=== PATIENT | female | born 1960 | race Caucasian/White ===

== ENCOUNTER 2024-08-10 08:17 | Emergency (ER) | payer OTHER ==
[2024-08-10 08:59] LABS: #Basophils 0.06 10x3/uL (0.0-0.2); %Basophils 0.6 % (0.0-1.0); %Lymphocytes 23.8 % (21.0-51.0); %Monocytes 6.8 % (0.0-10.0); %Neutrophils 66.3 % (42.0-75.0); Hematocrit 39.5 % (36.0-47.0); Hemoglobin 13.2 g/dL (12.0-16.0); Mean Corpuscular HGB CONC 33.4 g/dL (32.0-36.0); Mean Corpuscular Hemoglobin 29.1 pg (27.0-31.0); Mean Corpuscular Volume 87.2 fL (78.0-98.0); Mean Platelet Volume 10.3 fL (7.4-10.4); Platelet Count 202 10x3/uL (130-400); RBC Distribution Width 14.3 % (11.5-14.5); Red Blood Cell (RBC) Count 4.53 mill/uL (4.20-5.40)
[2024-08-10] MEDS ORDERED: Aspirin Chewable 81 MG TAB ONE (09:24)
[2024-08-10 09:29] LABS: Troponin I 0.011 ng/mL (< 0.028)
[2024-08-10 09:55] LABS: Albumin 3.7 g/dL (3.4-4.8); Calcium 9.4 mg/dL (7.8-10.44); Chloride 100 mmol/L (98-107); Potassium 4.2 mmol/L (3.5-5.1); Sodium 140 mmol/L (136-145)
[2024-08-10 09:56] LABS: Globulin 4.2 g/dL (2.4-3.5); Glucose 258 mg/dL (80-115); Protein, Total 7.9 g/dL (5.8-8.1)
[2024-08-10 09:57] LABS: Anion Gap 20 mmol/L (10-20); Carbon Dioxide 24 mmol/L (23-31)
[2024-08-10 09:59] LABS: Alkaline Phosphatase 142 U/L (40-110); Bilirubin, Total 0.5 mg/dL (0.2-1.2)
[2024-08-10 10:00] LABS: BUN (Urea Nitrogen) 26 mg/dL (9.8-20.1); Calc. Creatinine Clearance 0 mL/min (70-130); Estimated GFR 33
[2024-08-10 10:02] LABS: ALT (SGPT) 16 U/L (8-55); AST (SGOT) 15 U/L (5-34)
== END 2024-08-10 10:42 | disposition home or self-care (01) ==
LOC: ERS 08:17
DX: R55 Syncope and collapse (principal); R07.89 Other chest pain; I10 Essential (primary) hypertension; E11.9 Type 2 diabetes mellitus without complications
CPT/HCPCS: 71045; 80053; 83880; 84484; 85025; 93005

== ENCOUNTER 2025-07-11 20:00 | Inpatient (IN) | payer BC ==
[2025-07-11 22:21] LABS: #Basophils 0.06 10x3/uL (0.0-0.2); #Eosinophils 0.07 10x3/uL (0.0-0.7); #Monocytes 0.63 10x3/uL (0.11-0.59); #Neutrophils 5.14 10x3/uL (1.40-6.50); %Basophils 0.8 % (0.0-1.0); %Eosinophils 1.0 % (0.0-10.0); %Lymphocytes 16.0 % (21.0-51.0); %Monocytes 8.9 % (0.0-10.0); %Neutrophils 72.9 % (42.0-75.0); Hematocrit 32.1 % (36.0-47.0); Hemoglobin 9.4 g/dL (12.0-16.0); Mean Corpuscular Hemoglobin 22.2 pg (27.0-31.0); Mean Corpuscular Volume 75.7 fL (78.0-98.0); Platelet Count 229 10x3/uL (130-400); Red Blood Cell (RBC) Count 4.24 mill/uL (4.20-5.40); White Blood Cell (WBC) Count 7.06 10x3/uL (4.8-10.8)
[2025-07-11 22:46] LABS: ALT (SGPT) 9 U/L (Less than 34); AST (SGOT) 16 U/L (11-34); Albumin 3.1 g/dL (3.1-4.5); Alkaline Phosphatase 119 U/L (40-110); Anion Gap 16 mmol/L (10-20); BUN (Urea Nitrogen) 17 mg/dL (9.8-20.1); Bilirubin, Total 1.0 mg/dL (0.3-1.2); Calc. Creatinine Clearance 0 mL/min (70-130); Calcium 9.2 mg/dL (7.8-10.44); Carbon Dioxide 23 mmol/L (23-31); Chloride 100 mmol/L (98-107); Globulin 3.8 g/dL (2.4-3.5); Glucose 173 mg/dL (80-115); Potassium 3.9 mmol/L (3.5-5.1); Sodium 135 mmol/L (136-145)
[2025-07-11] MEDS ORDERED: Cefepime 2 GM VIAL ONE (23:28)
[2025-07-12] MEDS ORDERED: Vancomycin 1 GM/200 ML (PREMIX FOIL) BAG ONE (00:19)
[2025-07-12] MEDS ORDERED: Glucagon 1 MG/ML KIT IM PRN (02:54)
[2025-07-12] MEDS ORDERED: Dextrose 50% Abboject 50 ML SYRINGE SLOW IVP PRN (02:54)
[2025-07-12] MEDS ORDERED: HYDROcodone/Acetaminophen 7.5/325 mg Tablet PO PRN (04:32)
[2025-07-12 04:55] LABS: Anion Gap 19 mmol/L (10-20); BUN (Urea Nitrogen) 16 mg/dL (9.8-20.1); Calc. Creatinine Clearance 86 mL/min (70-130); Calcium 9.1 mg/dL (7.8-10.44); Carbon Dioxide 21 mmol/L (23-31); Chloride 99 mmol/L (98-107); Glucose 146 mg/dL (80-115); Potassium 3.6 mmol/L (3.5-5.1); Sodium 135 mmol/L (136-145)
[2025-07-12 05:44] LABS: #Basophils 0.08 10x3/uL (0.0-0.2); #Eosinophils 0.13 10x3/uL (0.0-0.7); #Monocytes 0.73 10x3/uL (0.11-0.59); #Neutrophils 4.89 10x3/uL (1.40-6.50); %Basophils 1.1 % (0.0-1.0); %Eosinophils 1.7 % (0.0-10.0); %Lymphocytes 21.3 % (21.0-51.0); %Monocytes 9.8 % (0.0-10.0); %Neutrophils 65.7 % (42.0-75.0); Hematocrit 32.0 % (36.0-47.0); Hemoglobin 9.1 g/dL (12.0-16.0); Mean Corpuscular Hemoglobin 22.0 pg (27.0-31.0); Mean Corpuscular Volume 77.3 fL (78.0-98.0); Platelet Count 226 10x3/uL (130-400); Red Blood Cell (RBC) Count 4.14 mill/uL (4.20-5.40); White Blood Cell (WBC) Count 7.45 10x3/uL (4.8-10.8)
[2025-07-12 06:36] LABS: Anisocytosis SLIGHT = 6-15 cells HPF (0-5); Macrocytosis SLIGHT = 6-15 cells HPF (0-5); Platelet Adequacy Comment Platelets Normal; Polychromasia SLIGHT = 2-3 cells HPF (0-2); Smudge Cells 7.8 %
[2025-07-12] MEDS: cefTRIAXone\\ROCEPHIN 1 GM in Sodium Chloride 0.9% 100 ML IVPB SCH (08:43)
[2025-07-12] MEDS: Carvedilol 6.25 MG TAB PO SCH (08:43)
[2025-07-12] MEDS: Furosemide 40 MG TAB PO SCH (08:44)
[2025-07-12] MEDS: Pantoprazole 40 MG DR.TAB PO SCH (08:44)
[2025-07-12] MEDS: Cyanocobalamin (Vitamin B-12) 1,000 MCG TAB PO SCH (08:45)
[2025-07-12] MEDS: Apixaban 5 MG TAB PO SCH (08:46)
[2025-07-12] MEDS: Insulin Glargine 30 UNITS/0.3 ML VIAL SC SCH ×2 (08:47→20:28)
[2025-07-12] MEDS: Lisinopril 5 MG TAB PO SCH (08:56)
[2025-07-12] MEDS ORDERED: Apixaban 5 MG TAB PO SCH (09:00)
[2025-07-12] MEDS: Vancomycin 1.5 GM / NS 500ML VIAL-2-BAG IVPB SCH (11:44)
[2025-07-12] MEDS ORDERED: Vancomycin HCl 750 MG in Sodium Chloride 0.9% 250 ML 250 ML IVPB SCH (12:00)
[2025-07-12 15:15] VITALS: BMI 37.8
[2025-07-12] MEDS: HYDROcodone/Acetaminophen 10/325 mg Tablet PO PRN (20:26)
[2025-07-13 05:32] LABS: #Basophils 0.06 10x3/uL (0.0-0.2); #Eosinophils 0.18 10x3/uL (0.0-0.7); #Monocytes 0.65 10x3/uL (0.11-0.59); #Neutrophils 3.74 10x3/uL (1.40-6.50); %Basophils 1.1 % (0.0-1.0); %Eosinophils 3.2 % (0.0-10.0); %Lymphocytes 16.4 % (21.0-51.0); %Monocytes 11.7 % (0.0-10.0); %Neutrophils 67.2 % (42.0-75.0); Hematocrit 29.0 % (36.0-47.0); Hemoglobin 8.5 g/dL (12.0-16.0); Mean Corpuscular Hemoglobin 22.5 pg (27.0-31.0); Mean Corpuscular Volume 76.9 fL (78.0-98.0); Platelet Count 202 10x3/uL (130-400); Red Blood Cell (RBC) Count 3.77 mill/uL (4.20-5.40); White Blood Cell (WBC) Count 5.56 10x3/uL (4.8-10.8)
[2025-07-13 06:33] LABS: Anion Gap 20 mmol/L (10-20); BUN (Urea Nitrogen) 14 mg/dL (9.8-20.1); Calc. Creatinine Clearance 83 mL/min (70-130); Calcium 8.2 mg/dL (7.8-10.44); Carbon Dioxide 23 mmol/L (23-31); Chloride 99 mmol/L (98-107); Glucose 166 mg/dL (80-115); Potassium 3.6 mmol/L (3.5-5.1); Sodium 138 mmol/L (136-145)
[2025-07-13 08:23] LABS: Vancomycin, Random 17.5 ug/mL (See Comment)
[2025-07-13] MEDS: Vancomycin 1.25 GM / NS 250 ML VIAL-2-BAG IVPB SCH (09:06)
[2025-07-13] MEDS: diphenhydrAMINE 25 MG CAP PO PRN (15:56)
[2025-07-14] MEDS ORDERED: Vancomycin 1 GM in Premix 1 BAG IVPB SCH (09:00)
[2025-07-14 10:39] LABS: #Basophils 0.04 10x3/uL (0.0-0.2); #Eosinophils 0.04 10x3/uL (0.0-0.7); #Monocytes 0.16 10x3/uL (0.11-0.59); #Neutrophils 5.45 10x3/uL (1.40-6.50); %Basophils 0.6 % (0.0-1.0); %Eosinophils 0.6 % (0.0-10.0); %Lymphocytes 9.2 % (21.0-51.0); %Monocytes 2.5 % (0.0-10.0); %Neutrophils 86.5 % (42.0-75.0); Hematocrit 31.0 % (36.0-47.0); Hemoglobin 9.2 g/dL (12.0-16.0); Mean Corpuscular Hemoglobin 22.8 pg (27.0-31.0); Mean Corpuscular Volume 76.7 fL (78.0-98.0); Platelet Count 247 10x3/uL (130-400); Red Blood Cell (RBC) Count 4.04 mill/uL (4.20-5.40); White Blood Cell (WBC) Count 6.31 10x3/uL (4.8-10.8)
[2025-07-14 10:54] LABS: Anion Gap 14 mmol/L (10-20); BUN (Urea Nitrogen) 13 mg/dL (9.8-20.1); Calc. Creatinine Clearance 88 mL/min (70-130); Calcium 9.0 mg/dL (7.8-10.44); Carbon Dioxide 24 mmol/L (23-31); Chloride 101 mmol/L (98-107); Glucose 211 mg/dL (80-115); Potassium 3.7 mmol/L (3.5-5.1); Sodium 135 mmol/L (136-145)
[2025-07-14] MEDS: Ondansetron PF 4 MG/2 ML Vial IVP PRN (14:02)
[2025-07-14] MEDS: Acetaminophen 325 MG TAB PO PRN (17:46)
[2025-07-15 09:26] LABS: Hematocrit 31.0 % (36.0-47.0); Hemoglobin 8.9 g/dL (12.0-16.0); Platelet Count 265 10x3/uL (130-400)
[2025-07-15] MEDS: Heparin 10,000 UNITS/ 10 ML VIAL SLOW IVP SCH (09:40)
[2025-07-15] MEDS: Nitroglycerin 2% Ointment 1 INCH/1 GM Packet ONE (11:05)
[2025-07-15] MEDS ORDERED: Iopamidol 370 76% 100 ML VIAL ONE (13:32)
[2025-07-15] MEDS: Nitroglycerin 2% Ointment 1 INCH/1 GM Packet TOP SCH (13:36)
[2025-07-15 20:15] VITALS: BP 111/77; TEMP 98
== END 2025-07-15 20:25 | disposition short-term general hospital (02) | DRG 300 ==
LOC: ERS 20:00 → MSONC 07-12 02:37 → OBSVTOIN 07-13 09:22 → 2NO 07-15 13:57
PROVIDERS: ADMIT Internal Medicine; ATTEND Internal Medicine
DX: I82.411 Acute embolism and thrombosis of right femoral vein (principal); I13.0 Hypertensive heart and chronic kidney disease with heart failure and stage 1 through stage 4 chronic kidney disease, or unspecified chronic kidney disease; L03.115 Cellulitis of right lower limb; I50.42 Chronic combined systolic (congestive) and diastolic (congestive) heart failure; N18.4 Chronic kidney disease, stage 4 (severe); I73.9 Peripheral vascular disease, unspecified; I25.10 Atherosclerotic heart disease of native coronary artery without angina pectoris; I35.0 Nonrheumatic aortic (valve) stenosis; M81.0 Age-related osteoporosis without current pathological fracture; F41.1 Generalized anxiety disorder; F43.10 Post-traumatic stress disorder, unspecified; E78.5 Hyperlipidemia, unspecified; E11.22 Type 2 diabetes mellitus with diabetic chronic kidney disease; G47.33 Obstructive sleep apnea (adult) (pediatric); Z79.899 Other long term (current) drug therapy; Z95.5 Presence of coronary angioplasty implant and graft; Z95.0 Presence of cardiac pacemaker; Z98.890 Other specified postprocedural states; Z82.49 Family history of ischemic heart disease and other diseases of the circulatory system; Z87.891 Personal history of nicotine dependence; Z88.0 Allergy status to penicillin; Z91.041 Radiographic dye allergy status; I25.2 Old myocardial infarction; Z79.4 Long term (current) use of insulin
CPT/HCPCS: 36415; 36416; 75635; 80048; 80053; 80202; 83605; 84484; 85014; 85018; 85025; 85049; 85730; 86141; 87040; 87081; 93005; 93010; 93926; 96365; 96366; 96367; 96375; 96376; 97139; G0378; J0692; J0696; J1644; J1815; J2270; J2405; J2919; J3372; J3373; J7030; J7050

== ENCOUNTER 2025-07-31 21:56 | Emergency (ER) | payer BC ==
[~2025-07-31 21:56] MED LIST: Iopamidol 370 76% 100 ML VIAL ONE
[2025-07-31 23:14] LABS: #Basophils 0.07 10x3/uL (0.0-0.2); #Eosinophils 0.15 10x3/uL (0.0-0.7); #Monocytes 0.45 10x3/uL (0.11-0.59); #Neutrophils 4.02 10x3/uL (1.40-6.50); %Basophils 1.2 % (0.0-1.0); %Eosinophils 2.6 % (0.0-10.0); %Lymphocytes 18.2 % (21.0-51.0); %Monocytes 7.8 % (0.0-10.0); %Neutrophils 69.9 % (42.0-75.0); Hematocrit 27.6 % (36.0-47.0); Hemoglobin 8.0 g/dL (12.0-16.0); Mean Corpuscular Hemoglobin 22.7 pg (27.0-31.0); Mean Corpuscular Volume 78.2 fL (78.0-98.0); Platelet Count 177 10x3/uL (130-400); Red Blood Cell (RBC) Count 3.53 mill/uL (4.20-5.40); White Blood Cell (WBC) Count 5.76 10x3/uL (4.8-10.8)
[2025-07-31 23:30] LABS: ALT (SGPT) Less than 7 U/L (Less than 34); AST (SGOT) 17 U/L (11-34); Albumin 2.9 g/dL (3.1-4.5); Alkaline Phosphatase 124 U/L (40-110); Anion Gap 17 mmol/L (10-20); BUN (Urea Nitrogen) 16 mg/dL (9.8-20.1); Bilirubin, Total 0.7 mg/dL (0.3-1.2); Calc. Creatinine Clearance 0 mL/min (70-130); Calcium 9.2 mg/dL (7.8-10.44); Carbon Dioxide 30 mmol/L (23-31); Chloride 100 mmol/L (98-107); Globulin 3.3 g/dL (2.4-3.5); Glucose 199 mg/dL (80-115); Potassium 4.3 mmol/L (3.5-5.1); Sodium 143 mmol/L (136-145)
[2025-07-31 23:33] LABS: INR-International Normal Ratio 1.2; PTT 31.8 sec (22.9-36.1); Prothrombin Time 15.2 sec (12.0-14.7)
[2025-07-31] MEDS ORDERED: Famotidine/PF 20 mg/2ml Vial ONE (23:45)
[2025-07-31] MEDS ORDERED: diphenhydrAMINE 50 MG/ML VIAL ONE (23:45)
[2025-08-01] MEDS ORDERED: Vancomycin (BATCH) 2.5 GM in Premix 1 BAG IVPB SCH (01:00)
[2025-08-01] MEDS ORDERED: Cefepime 2 GM VIAL ONE (01:17)
== END 2025-08-01 08:58 | disposition short-term general hospital (02) ==
LOC: ERS 21:56
DX: T81.49XA Infection following a procedure, other surgical site, initial encounter (principal); E11.9 Type 2 diabetes mellitus without complications; I11.0 Hypertensive heart disease with heart failure; I50.9 Heart failure, unspecified; I25.2 Old myocardial infarction; Z79.01 Long term (current) use of anticoagulants
CPT/HCPCS: 71045; 75635; 80053; 83605; 83880; 84484; 85025; 85610; 85730; 86141; 87040; 93005; 96365; 96366; 96375; 96376; J0692; J1200; J2270; J2919; J3010; J3373

== ENCOUNTER 2025-09-29 09:45 | Day surgery (SDC) | payer BC ==
[2025-09-29] MEDS ORDERED: Ondansetron PF 4 MG/2 ML Vial ONE (10:20)
[2025-09-29] MEDS ORDERED: fentaNYL PF 100 MCG/2 ML SYRINGE ONE ×4 (10:20→12:28)
[2025-09-29] MEDS ORDERED: Lidocaine 1% PF 5 ML VIAL ONE (10:20)
[2025-09-29] MEDS ORDERED: PHENYLEPHRINE-NS 100 MCG/ML 10 ML SYRINGE ONE (10:20)
[2025-09-29] MEDS ORDERED: Rocuronium Bromide 10 MG/ML (10ML VIAL) ONE (10:20)
[2025-09-29] MEDS ORDERED: Lidocaine 2% 6 ML (Jelly) SYR ONE (10:24)
[2025-09-29] MEDS ORDERED: Etomidate 40 MG (20 mL) VIAL ONE (10:39)
[2025-09-29] MEDS ORDERED: Glycopyrrolate 0.2 MG/ML 5 ML SYRINGE ONE (11:05)
[2025-09-29] MEDS ORDERED: Ketamine In 0.9 % NaCl 50 MG/5 ML SYRINGE ONE (11:05)
[2025-09-29] MEDS ORDERED: Albuterol HFA (OR) 200 PUFF INH ONE (11:05)
[2025-09-29] MEDS ORDERED: HYDROmorphone 0.5 MG/0.5 ML SYRINGE ONE ×2 (11:47→12:24)
[2025-09-29 13:13] LABS: #Basophils 0.09 10x3/uL (0.0-0.2); #Eosinophils 0.10 10x3/uL (0.0-0.7); #Monocytes 0.40 10x3/uL (0.11-0.59); #Neutrophils 6.93 10x3/uL (1.40-6.50); %Basophils 1.0 % (0.0-1.0); %Eosinophils 1.1 % (0.0-10.0); %Lymphocytes 15.8 % (21.0-51.0); %Monocytes 4.5 % (0.0-10.0); %Neutrophils 77.3 % (42.0-75.0); Hematocrit 38.8 % (36.0-47.0); Hemoglobin 11.8 g/dL (12.0-16.0); Mean Corpuscular Hemoglobin 25.9 pg (27.0-31.0); Mean Corpuscular Volume 85.3 fL (78.0-98.0); Platelet Count 214 10x3/uL (130-400); Red Blood Cell (RBC) Count 4.55 mill/uL (4.20-5.40); White Blood Cell (WBC) Count 8.97 10x3/uL (4.8-10.8)
[2025-09-29 13:14] LABS: Anion Gap 18 mmol/L (10-20); BUN (Urea Nitrogen) 9 mg/dL (9.8-20.1); Calc. Creatinine Clearance 0 mL/min (70-130); Calcium 9.1 mg/dL (7.8-10.44); Carbon Dioxide 20 mmol/L (23-31); Chloride 104 mmol/L (98-107); Glucose 159 mg/dL (80-115); Potassium 3.6 mmol/L (3.5-5.1); Sodium 138 mmol/L (136-145)
== END 2025-09-29 15:15 | disposition home or self-care (01) ==
LOC: SDC 09:45
PROVIDERS: ATTEND Thoracic Surgery (Cardiothoracic Vascular Surgery)
PROC: 0Y6P0Z3 Detachment at Right 1st Toe, Low, Open Approach (ICD-10-PCS; principal; 2025-09-29)
DX: I96 Gangrene, not elsewhere classified (principal); N18.30 Chronic kidney disease, stage 3 unspecified; E11.9 Type 2 diabetes mellitus without complications; I21.4 Non-ST elevation (NSTEMI) myocardial infarction; I34.0 Nonrheumatic mitral (valve) insufficiency; Z88.0 Allergy status to penicillin; Z91.041 Radiographic dye allergy status; Z79.4 Long term (current) use of insulin
CPT/HCPCS: 80048; 85025; 87070; 87077; 87186; 87205; J0169; J0665; J1100; J1171; J2250; J2405; J2543; J2550; J3490